=== PATIENT | male | born 1955 | race Caucasian/White ===

== ENCOUNTER 2018-02-07 09:28 | Emergency (ER) | payer OTHER ==
[~2018-02-07] VITALS: Ht 188 cm; Wt 79.4 kg
[~2018-02-07 09:28] MED LIST: CARVEDILOL12.5 MG; ENALAPRIL MALEAT5 M2; LIPITOR10 MG; PLAVIX 300 MG300 M1; ZANTAC 150MG T150 MG
[2018-02-07] MEDS ORDERED: APAP650 PO (09:55)
[2018-02-07 10:21] VITALS: BP 143/96
== END 2018-02-07 10:20 | disposition home or self-care (01) ==
LOC: ER 09:28
DX: M25.561 Pain in right knee (principal); M25.562 Pain in left knee; I25.2 Old myocardial infarction; I25.10 Atherosclerotic heart disease of native coronary artery without angina pectoris; G89.29 Other chronic pain; W18.30XA Fall on same level, unspecified, initial encounter; Y93.89 Activity, other specified; Y92.89 Other specified places as the place of occurrence of the external cause; Y99.8 Other external cause status